=== PATIENT | male | born 1975 | race Caucasian/White ===

== ENCOUNTER 2021-05-23 13:39 | Emergency (ER) | payer OTHER ==
[~2021-05-23] VITALS: Ht 175.3 cm; Wt 104.8 kg
[~2021-05-23 13:39] MED LIST: ALKA-SELTZER H1 EACH PO; ASPIR 8181 M1; ASPIR 8181 MG PO; ATIVAN0.5 MG PO; ATORVASTATIN CA40 MG; AUGMENTIN 875-1 EACH PO; BACTRIM DS TAB1 EAC1 PO; BACTRIM DS TAB1 EACH; BACTRIM DS TAB1 EACH PO; CIPROFLOXACIN500 M1 PO; DOXYCYCLINE 10100 MG PO; ENOXAPARIN80 MG/0.1 SUBQ; FISH OIL 1,001000 MG PO; HYDROCHLOROTHIA25 M1 PO; HYDROCODONE-AP1 EAC6 PO; IBUPROFEN 200200 M1 PO; LIPITOR 20 MG T20 M1 PO; LIPITOR20 MG PO; LOPRESSOR25; METOPROLOL SUCC25 M1 PO; MOTION RELIEF25 MG PO; NORCO 5-325 TA1 EACH PO; PACERONE 200 M200 M1 PO; PACERONE 200 M200 MG PO; PERCOCET 5-3251 EACH PO; PROTONIX40 M1 PO; REGLAN 10 MG TA10 MG PO; SORINE 80 MG TA80 M1 PO; TOPROL XL25 MG PO; TORADOL 10 MG T10 MG PO; TUMS PO; TYLENOL325 MG PO; UNICOMPLEX M TA1 TA1 PO; VALIUM5 MG PO; XARELTO20 MG PO; ZOCOR40 MG PO
[2021-05-23] MEDS ORDERED: VAZALORE325 MG PO (13:56)
[2021-05-23] MEDS ORDERED: NORVASC 2.5 MG2.5 M1 PO (13:56)
[2021-05-23] MEDS ORDERED: POLYMYXIN B/TMP10 ML INTRAOCULR (15:23)
[2021-05-23 15:28] VITALS: BP 112/70
== END 2021-05-23 15:28 | disposition home or self-care (01) ==
LOC: M.ERS 13:39
DX: H11.32 Conjunctival hemorrhage, left eye (principal); E78.00 Pure hypercholesterolemia, unspecified; I10 Essential (primary) hypertension; I48.91 Unspecified atrial fibrillation; F32.9 Major depressive disorder, single episode, unspecified; F41.9 Anxiety disorder, unspecified; Z79.899 Other long term (current) drug therapy; Z79.82 Long term (current) use of aspirin; Z88.1 Allergy status to other antibiotic agents; Z88.5 Allergy status to narcotic agent; Z88.8 Allergy status to other drugs, medicaments and biological substances